=== PATIENT | female | born 1950 ===

== ENCOUNTER 2018-07-01 11:51 | Outpatient (CLI) | payer MEDICARE, OTHER ==
--- NOTE | 2018-07-01 14:50 | CT Report ---
Reason: HIATAL HERNIA, ABD CRAMPING Procedure Date: 07/01/2018 Accession Number: [id number] / [id number] Procedure: CT - Abdomen/Pelvis W/O CPT Code: FULL RESULT: EXAM: CT ABDOMEN AND PELVIS EXAM DATE: 07/01/2018 12:09 PM. CLINICAL HISTORY: Hiatal hernia, abdominal cramping. COMPARISONS: None. TECHNIQUE: Routine helical CT imaging was performed through the abdomen and pelvis. IV contrast: None. Enteric contrast: No. Reconstructions: Coronal and sagittal. In accordance with CT protocol optimization, one or more of the following dose reduction techniques were utilized for this exam: automated exposure control, adjustment of mA and/or KV based on patient size, or use of iterative reconstructive technique. FINDINGS: Lung Bases: Unremarkable. Liver: Normal. No masses. Gallbladder/Bile Ducts: Unremarkable. Spleen: Normal. Pancreas: Normal. Adrenal Glands: Normal. Kidneys: Normal. No masses or hydronephrosis. Peritoneal Cavity/Bowel: Normal. No free fluid, free air or adenopathy. No masses or acute inflammatory process. The appendix is not separately identified. Pelvic Organs: Normal. The bladder and visualized pelvic organs are within normal limits. Vasculature: No aneurysms or other significant abnormality. Bones: No significant abnormality. Other: Questionably small sliding hiatal hernia. IMPRESSION: Limited examination with no acute abnormality identified. CT appearance is compatible with small sliding hiatal hernia. RADIA
== END 2018-07-01 11:52 | disposition home or self-care (01) ==
LOC: DI 11:51
PROVIDERS: ATTEND Nurse Practitioner Family
DX: R10.9 Unspecified abdominal pain (principal); K44.9 Diaphragmatic hernia without obstruction or gangrene
CPT/HCPCS: 74176

== ENCOUNTER 2019-06-08 08:33 | Outpatient (CLI) | payer MEDICARE, OTHER ==
--- NOTE | 2019-06-09 09:50 | Ultrasound Report ---
Reason: PAIN IN PELVIS Procedure Date: 06/08/2019 Accession Number: [id number] / [id number] Procedure: US - Pelvic w/Transvaginal CPT Code: FULL RESULT: EXAM: PELVIC ULTRASOUND EXAM DATE: 06/08/2019 10:00 AM. CLINICAL HISTORY: Pain in pelvis. COMPARISON: ABDOMEN/PELVIS W/O 07/01/2018 12:08 PM. TECHNIQUE: Realtime transabdominal pelvic scan performed to identify the uterus and adnexa and as an overview of other pelvic structures, followed by transvaginal scan to provide greater detail of the uterus and adnexa, with static image documentation. FINDINGS: Uterus: 6.4 x 2.3 x 5.2 cm, volume 40 cc. Anteverted position. Multiple small myometrial masses. Masses: Oval 1 cm posterior myometrial mass; cluster of calcifications in the anterior myometrium measuring 9 mm, likely calcified fibroid, second 9 mm oval mass anterior myometrium; 9 mm oval mass lower uterine segment. Endometrium: 3.7. mm. Small amount of echo-free fluid in the endometrial cavity. Cervix: Unremarkable. Right Ovary: 2.5 x 1.1 x 1.4 cm, volume 2 cc. Normal echotexture and blood flow. Left Ovary: 3.9 x 2.7 x 2.2 cm, volume 12.1 cc. Normal blood flow. There is a 1.7 x 0.9 x 1.3 cm echogenic nonshadowing masslike region in the left ovary on multiple images. Free Fluid: Trace Other: None. IMPRESSION: 1. Findings consistent with multiple small uterine fibroids. 2. Nonspecific geographic 1.7 centimeter hyperechoic nonshadowing masslike area of the left ovary, otherwise difficult to characterize on the provided study. No appreciable fat or calcification to suggest dermoid on prior CT of 2018. Appropriate action is recommended which could include specialty referral or further imaging with a pelvic MRI. RADIA
== END 2019-06-08 08:34 | disposition home or self-care (01) ==
LOC: DI 08:33
PROVIDERS: ATTEND Nurse Practitioner Family
DX: N85.9 Noninflammatory disorder of uterus, unspecified (principal); N83.9 Noninflammatory disorder of ovary, fallopian tube and broad ligament, unspecified
CPT/HCPCS: 76830; 76856

== ENCOUNTER 2019-07-10 06:38 | Day surgery (SDC) | payer MEDICARE, OTHER ==
[2019-07-10] MEDS ORDERED: fentaNYL 250 MCG/5 ML VIAL IVP ONE (06:39)
[2019-07-10] MEDS ORDERED: MIDAZOLAM 2 MG/2 ML VIAL IVP ONE (06:39)
[2019-07-10] MEDS ORDERED: LACTATED RINGERS 1,000 ML IV ONE ×2 (06:50→11:15)
[2019-07-10] MEDS ORDERED: ONDANSETRON 4 MG/2 ML VIAL ONE (09:15)
[2019-07-10 12:12] VITALS: BP 126/65
== END 2019-07-10 06:39 | disposition home or self-care (01) ==
LOC: SDS 06:38
PROVIDERS: ATTEND Surgery
PROC: 0DB98ZX Excision of Duodenum, Via Natural or Artificial Opening Endoscopic, Diagnostic (ICD-10-PCS; principal; 2019-07-10 09:00)
PROC: 0DJD8ZZ Inspection of Lower Intestinal Tract, Via Natural or Artificial Opening Endoscopic (ICD-10-PCS; 2019-07-10 09:00)
DX: D50.9 Iron deficiency anemia, unspecified (principal); E03.9 Hypothyroidism, unspecified; K21.9 Gastro-esophageal reflux disease without esophagitis; K44.9 Diaphragmatic hernia without obstruction or gangrene
CPT/HCPCS: 43239; 45378; J3010; J7120

== ENCOUNTER 2019-08-11 10:11 | Outpatient (CLI) | payer MEDICARE, OTHER ==
--- NOTE | 2019-08-11 11:09 | Mammography Report ---
Reason: SCREENING MAMMO Procedure Date: 08/11/2019 Accession Number: [id number] / [id number] Procedure: MGS - Screening Mammo Dig Bilat CPT Code: Final Report FULL RESULT: EXAM: Screening Mammo Dig Bilat DATE: 08/11/2019 10:28 AM CLINICAL HISTORY: Screening encounter. History of nulliparity. TECHNIQUE: (B) - Bilateral CC and MLO views were obtained. Left laterally exaggerated CC view is obtained. COMPARISON: 07/29/2018 through 06/06/2015. PARENCHYMAL PATTERN: (D) - The breast(s) demonstrate(s) heterogeneously dense fibroglandular parenchyma. FINDINGS: There are coarse typically benign calcifications. There are no suspicious masses, calcifications, or areas of distortion. IMPRESSION: Benign findings. BI-RADS category 2. RECOMMENDATION: (ANNUAL) - Recommend routine annual screening mammography. BI-RADS CATEGORY: (2) - Benign Findings. STANDARD QUALIFYING STATEMENTS: 1. This examination was reviewed with the aid of Computer-Aided Detection (CAD). 2. A negative or benign imaging report should not preclude biopsy if clinically suspicious findings are present. 3. Dense breasts may obscure an underlying neoplasm. 4. This examination was reviewed without the aid of 3D breast imaging (tomosynthesis).
== END 2019-08-11 10:12 | disposition home or self-care (01) ==
LOC: DI.S 10:11
PROVIDERS: ATTEND Nurse Practitioner Family
DX: Z12.31 Encounter for screening mammogram for malignant neoplasm of breast (principal)
CPT/HCPCS: 77067

== ENCOUNTER 2020-09-15 13:16 | Outpatient (CLI) | payer MEDICARE, OTHER ==
--- NOTE | 2020-09-16 07:17 | Mammography Report ---
BILATERAL DIGITAL SCREENING MAMMOGRAM 3D/2D: 09/15/2020 CLINICAL: Routine screening. Comparison is made to exams dated: 08/11/2019 mammogram, 07/29/2018 mammogram - [facility], and 07/05/2017 mammogram - [facility]. The tissue of both breasts is predomina ntly fatty. There are benign calcifications in both breasts. No significant masses, calcifications, or other findings are seen in either breast. There has been no significant interval change. IMPRESSION: BENIGN There is no mammographic evidence of malignancy. A 1 year screening mammogram is recommended. This exam was interpreted at Station ID: [id number]. NOTE: For mammograms, a report in lay terms will be sent to the patient. Approximately 15% of breast malignancies will not be visualized mammographically. In the management of a palpable breast mass, a negative mammogram must not discourage biopsy of a clinically suspicious lesion. Electronically Signed By: Fabrice Walsh acr/penrad:09/15/2020 14:43:29 ACR BI-RADS Category 2: Benign Finding(s) 3342F PARENCHYMAL PATTERN: (F) - The breast(s) demonstrate(s) diffuse fatty replacement. BI-RADS CATEGORY: (2) - 2 RECOMMENDATION: (ANNUAL) - Recommend routine annual screening mammography. [id number] 1 year screening LATERALITY: (B)
== END 2020-09-15 13:17 | disposition home or self-care (01) ==
LOC: DI 13:16
PROVIDERS: ATTEND Registered Nurse
DX: Z12.31 Encounter for screening mammogram for malignant neoplasm of breast (principal)
CPT/HCPCS: 77067

== ENCOUNTER 2021-12-18 12:59 | Outpatient (CLI) | payer MEDICARE, OTHER ==
--- NOTE | 2021-12-18 16:37 | Mammography Report ---
BILATERAL DIGITAL SCREENING MAMMOGRAM 3D/2D WITH EXAGGERATED CC: 12/18/2021 CLINICAL: Routine screening. Comparison is made to exams dated: 09/15/2020 mammogram, 08/11/2019 mammogram, and 07/29/2018 mammogr am - [facility]. The tissue of both breasts is extremely dense, which lowers the s ensitivity of mammography. There are benign calcifications in both breasts. No significant masses, calcifications, or other findings are seen in either breast. There has been no significant interval change. IMPRESSION: BENIGN There is no mammographic evidence of malignancy. A 1 year screening mammogram is recommended. This exam was interpreted at Station ID: [id number]. NOTE: For mammograms, a report in lay terms will be sent to the patient. Approximately 15% of breast malignancies will not be visualized mammographically. In the management of a palpable breast mass, a negative mammogram must not discourage biopsy of a clinically suspicious lesion. Electronically Signed By: Anna Marie manzo/emiliano:12/18/2021 14:18:47 ACR BI-RADS Category 2: Benign Finding(s) 3342F PARENCHYMAL PATTERN: (VD) - The breast(s) demonstrate(s) extremely dense parenchyma, limiting the sen sitivity of mammography. BI-RADS CATEGORY: (2) - 2 RECOMMENDATION: (ANNUAL) - Recommend routine annual screening mammography. [id number] 1 year screening LATERALITY: (B)
== END 2021-12-18 13:00 | disposition home or self-care (01) ==
LOC: DI.S 12:59
DX: Z12.31 Encounter for screening mammogram for malignant neoplasm of breast (principal)

== ENCOUNTER 2022-12-19 10:55 | Outpatient (CLI) | payer MEDICARE, OTHER ==
--- NOTE | 2022-12-20 10:49 | Mammography Report ---
BILATERAL DIGITAL SCREENING MAMMOGRAM 3D/2D WITH EXAGGERATED CC: 12/19/2022 CLINICAL: Routine screening. Comparison is made to exams dated: 12/18/2021 mammogram, 09/15/2020 mammogram, 08/11/2019 mammogram, a nd 07/29/2018 mammogram - [facility]. Both breasts are extremely dense, which lowers the sensitivity of mammography (category d />75% gland ular tissue). There are benign calcifications in both breasts. No significant masses, calcifications, or other findings are seen in either breast. There has been no significant interval change. IMPRESSION: BENIGN There is no mammographic evidence of malignancy. A 1 year screening mammogram is recommended. Based on the Tyrer Cuzick model (a risk assessment model) the patients lifetime risk is 13.9% and he r 10 year risk is 12.8%. According to the ACR, ACS, and NCCN guidelines, an annual breast MRI exam [place] with mammogram is recommended if the patients lifetime risk is 20% or greater. This exam was interpreted at Station ID: [id number]. NOTE: For mammograms, a report in lay terms will be sent to the patient. Approximately 15% of breast malignancies will not be visualized mammographically. In the management of a palpable breast mass, a negative mammogram must not discourage biopsy of a clinically suspicious lesion. Electronically Signed By: Ketan vang/emiliano:12/19/2022 13:23:53 letter sent: No_Letter ACR BI-RADS Category 2: Benign Finding(s) 3342F PARENCHYMAL PATTERN: (VD) - The breast(s) demonstrate(s) extremely dense parenchyma, limiting the sen sitivity of mammography. BI-RADS CATEGORY: (2) - 2 Mammogram [id number] 1 year screening LATERALITY: (B)
== END 2022-12-19 10:56 | disposition home or self-care (01) ==
LOC: DI.S 10:55
DX: Z12.31 Encounter for screening mammogram for malignant neoplasm of breast (principal)

== ENCOUNTER 2023-03-23 10:50 | Outpatient (CLI) | payer MEDICARE, OTHER | END 2023-03-23 23:59 | disposition short-term general hospital (02) | LOC: EMS 10:50 | DX: R56.9 Unspecified convulsions (principal); S00.81XA Abrasion of other part of head, initial encounter; H57.02 Anisocoria; R11.0 Nausea; S01.21XA Laceration without foreign body of nose, initial encounter; S49.91XA Unspecified injury of right shoulder and upper arm, initial encounter; V18.4XXA Pedal cycle driver injured in noncollision transport accident in traffic accident, initial encounter; Y93.55 Activity, bike riding; Y92.414 Local residential or business street as the place of occurrence of the external cause | CPT/HCPCS: A0425; A0427 ==

== ENCOUNTER 2023-12-23 13:10 | Outpatient (CLI) | payer MEDICARE, OTHER ==
--- NOTE | 2023-12-24 09:53 | Mammography Report ---
BILATERAL DIGITAL SCREENING MAMMOGRAM 3D/2D: 12/23/2023 CLINICAL: Routine screening. Family history of breast cancer. Comparison is made to exams dated: 12/19/2022 mammogram, 12/18/2021 mammogram, and 09/15/2020 mammogram - [facility]. Both breasts are extremely dense, which lowers the sensitivity of mammography (category d />75% gland ular tissue). There are benign calcifications in the right breast. No significant masses, calcifications, or other findings are seen in either breast. There has been no significant interval change. IMPRESSION: BENIGN There is no mammographic evidence of malignancy. A 1 year screening mammogram is recommended. Based on the Tyrer Cuzick model (a risk assessment model) the patient's lifetime risk is 14.5% and he r 10 year risk is 14.5%. According to the ACR, ACS, and NCCN guidelines, an annual breast MRI exam [place] with mammogram is recommended if the patient's lifetime risk is 20% or greater. This exam was interpreted at Station ID: [id number]. NOTE: For mammograms, a report in lay terms will be sent to the patient. Approximately 15% of breast malignancies will not be visualized mammographically. In the management of a palpable breast mass, a negative mammogram must not discourage biopsy of a clinically suspicious lesion. Electronically Signed By: Marsha schmitz/emiliano:12/23/2023 14:52:26 letter sent: No_Letter ACR BI-RADS Category 2: Benign Finding(s) 3342F PARENCHYMAL PATTERN: (VD) - The breast(s) demonstrate(s) extremely dense parenchyma, limiting the sen sitivity of mammography. BI-RADS CATEGORY: (2) - 2 RECOMMENDATION: (ANNUAL) - Recommend routine annual screening mammography. [id number] 1 year screening LATERALITY: (B)
== END 2023-12-23 13:11 | disposition home or self-care (01) ==
LOC: DI.S 13:10
DX: Z12.31 Encounter for screening mammogram for malignant neoplasm of breast (principal); Z80.3 Family history of malignant neoplasm of breast; R92.343 Mammographic extreme density, bilateral breasts; R92.1 Mammographic calcification found on diagnostic imaging of breast